=== PATIENT | male | born 1995 | race Hispanic/Latino ===

== ENCOUNTER 2019-09-13 04:51 | Emergency (ER) | payer SELFPAY ==
[~2019-09-13] VITALS: Ht 180.3 cm; Wt 77.3 kg
[2019-09-13] MEDS ORDERED: LORTAB 5/3255 MG PO (07:13)
[2019-09-13] MEDS ORDERED: KEFLEX500 MG PO (07:13)
[2019-09-13] MEDS ORDERED: MOTRIN800 MG PO (07:13)
[2019-09-13 07:46] VITALS: BP 118/68
== END 2019-09-13 08:10 | disposition home or self-care (01) | DRG 566 ==
LOC: ED 04:51
PROC: 0HQMXZZ Repair Right Foot Skin, External Approach (ICD-10-PCS; principal; 2019-09-13)
DX: S96.121A Laceration of muscle and tendon of long extensor muscle of toe at ankle and foot level, right foot, initial encounter (principal); S91.311A Laceration without foreign body, right foot, initial encounter; S99.101A Unspecified physeal fracture of right metatarsal, initial encounter for closed fracture; S50.811A Abrasion of right forearm, initial encounter; V86.56XA Driver of dirt bike or motor/cross bike injured in nontraffic accident, initial encounter; Y93.I9 Activity, other involving external motion; Y92.89 Other specified places as the place of occurrence of the external cause

== ENCOUNTER 2019-09-14 16:58 | Emergency (ER) | payer SELFPAY ==
[~2019-09-14] VITALS: Ht 180.3 cm; Wt 77.2 kg
[~2019-09-14 16:58] MED LIST: KEFLEX500 MG PO; LORTAB 5/3255 MG PO; MOTRIN800 MG PO
[2019-09-14 17:55] VITALS: BP 136/68
== END 2019-09-14 17:55 | disposition home or self-care (01) | DRG 563 ==
LOC: ED 16:58
PROC: 2W3SX1Z Immobilization of Right Foot using Splint (ICD-10-PCS; principal; 2019-09-14)
DX: S92.341A Displaced fracture of fourth metatarsal bone, right foot, initial encounter for closed fracture (principal); S96.121A Laceration of muscle and tendon of long extensor muscle of toe at ankle and foot level, right foot, initial encounter; V86.96XA Unspecified occupant of dirt bike or motor/cross bike injured in nontraffic accident, initial encounter

== ENCOUNTER 2023-02-04 20:38 | Emergency (ER) | payer SELFPAY ==
[~2023-02-04] VITALS: Ht 170.2 cm; Wt 60.0 kg
[2023-02-04] MEDS ORDERED: BACTRIM DS1 TAB PO (21:35)
[2023-02-04 22:03] VITALS: BP 135/80
== END 2023-02-04 22:21 | disposition home or self-care (01) | DRG 603 ==
LOC: ED 20:38
DX: L03.012 Cellulitis of left finger (principal)

== ENCOUNTER 2024-02-28 05:45 | Emergency (ER) | payer OTHER ==
[~2024-02-28] VITALS: Ht 170.2 cm; Wt 86.0 kg
[2024-02-28] VITALS (10 sets, daily range): BP systolic 86–142; BP diastolic 48–104
[~2024-02-28 05:45] MED LIST changes: +BACTRIM DS1 TAB PO
[2024-02-28] MEDS ORDERED: SODIUM CHLORIDE 0.9% 1,000 ML IV ONE (06:00)
[2024-02-28] MEDS ORDERED: Diph, Acellular Pertussis, Tet 0.5 ML/VIAL (Tdap) SDV IM ONE (06:00)
[2024-02-28] MEDS ORDERED: MORPHINE SULFATE 4 MG/ML VIAL IV ONE (06:05)
[2024-02-28] MEDS ORDERED: PROMETHAZINE HCL 25 MG/ML AMP IV ONE (06:05)
[2024-02-28 07:26] LABS: BASO% 0.3 % (0-3); EOS% 0.6 % (0-8); IMMATURE GRANULOCYTES 0.6 % (0.0-5.0); LYMPH% 10.4 % (15-41); MEAN CORPUSCULAR HGB 30.9 pG CALC (26.0-32.0); MEAN CORPUSCULAR HGB CONC 33.6 g/dL CAL (32.0-36.0); MONO% 6.6 % (2-13); NEUT# 8.89 thou/uL (1.82-7.42); NEUT% 81.5 % (42-76); RED BLOOD COUNT 3.85 mill/uL (4.70-6.10); RED CELL DISTRI WIDTH 12.1 % (11.5-15.5)
[2024-02-28 07:30] LABS: HEMATOCRIT 35.4 % (39.0-50.0); HEMOGLOBIN 11.9 g/dl (14.0-18.0); MEAN CELL VOLUME 91.9 fL CALC (80.0-100.0)
[2024-02-28 07:39] LABS: ALBUMIN 3.5 g/dL (3.2-5.0); BILIRUBIN, TOTAL 0.4 mg/dL (0.2-1.3); CREATININE 0.8 mg/dL (0.7-1.3); POTASSIUM 3.7 mmol/l (3.5-5.1); TOTAL PROTEIN 6.3 g/dL (6.3-8.2)
[2024-02-28 07:54] LABS: ACT PARTIAL THROMBO TIME 21.5 SECONDS (20.0-32.5)
[2024-02-28 07:57] LABS: PROTHROMBIN TIME 10.8 SECONDS (9.0-12.5)
[2024-02-28 08:58] LABS: URINE BILIRUBIN - DIPSTICK Negative (NEGATIVE); URINE BLOOD DIPSTICK Negative (NEGATIVE); URINE CLARITY Clear; URINE GLUCOSE - DIPSTICK Negative (NEGATIVE); URINE KETONE Trace mg/dL (NEGATIVE); URINE LEUK ESTERASE Negative (Negative); URINE NITRITE - DIPSTICK Negative (Negative); URINE PROTEIN - DIPSTICK Negative (NEG-TRACE); URINE SPECIFIC GRAVITY 1.025; URINE UROBILINOGEN - DIPSTICK 0.2 E.U./dL (0.2)
[2024-02-28 09:21] LABS: URINE COLOR Yellow
== END 2024-02-28 09:55 | disposition home or self-care (01) | DRG 605 ==
LOC: ED 05:45
PROVIDERS: Family Medicine
PROC: 0HQ0XZZ Repair Scalp Skin, External Approach (ICD-10-PCS; principal; 2024-02-28)
DX: S01.01XA Laceration without foreign body of scalp, initial encounter (principal); S01.511A Laceration without foreign body of lip, initial encounter; V57.5XXA Driver of pick-up truck or van injured in collision with fixed or stationary object in traffic accident, initial encounter
CPT/HCPCS: 90715; J0690; J2550

== ENCOUNTER 2024-03-12 18:16 | Emergency (ER) | payer OTHER ==
[~2024-03-12] VITALS: Ht 170.2 cm; Wt 74.0 kg
[2024-03-12] VITALS (8 sets, daily range): BP systolic 110–127; BP diastolic 68–82
[2024-03-12] MEDS ORDERED: METHOCARBAMOL500 MG PO (19:42)
[2024-03-12] MEDS ORDERED: NAPROXEN500 MG PO (19:42)
== END 2024-03-12 19:53 | disposition home or self-care (01) | DRG 950 ==
LOC: ED 18:16
DX: S01.01XD Laceration without foreign body of scalp, subsequent encounter (principal); S20.212D Contusion of left front wall of thorax, subsequent encounter; V89.2XXD Person injured in unspecified motor-vehicle accident, traffic, subsequent encounter

== ENCOUNTER 2024-03-15 06:30 | Emergency (ER) | payer OTHER ==
[~2024-03-15] VITALS: Ht 170.2 cm; Wt 68.0 kg
[~2024-03-15 06:30] MED LIST changes: +METHOCARBAMOL500 MG PO; +NAPROXEN500 MG PO
== END 2024-03-15 06:56 | disposition home or self-care (01) | DRG 921 ==
LOC: ED 06:30
DX: T81.33XA Disruption of traumatic injury wound repair, initial encounter (principal); Y83.8 Other surgical procedures as the cause of abnormal reaction of the patient, or of later complication, without mention of misadventure at the time of the procedure